=== PATIENT | female | born 1985 | race Hispanic/Latino ===

== ENCOUNTER 2020-03-25 11:43 | Observation (INO) | payer OTHER, SELFPAY ==
[2020-03-25] VITALS (8 sets, daily range): BP systolic 127–156; BP diastolic 76–93; PULSE 63–95; BMI 40.3
--- NOTE | ~2020-03-25 | US_ITS ---
EXAMINATION: US OB limited DATE: 03/25/2020 13:11 INDICATION: Bleeding. Third trimester. TECHNIQUE: Real-time ultrasound of the pelvis was performed. COMPARISON: None. FINDINGS: There is a single fetus in breech presentation. The placenta is anterior. heart rate is 165 be ats per minute (bpm). The amniotic fluid index is 8.9 cm, which is normal. IMPRESSION: 1. Single living fetus in breech presentation. Reviewed, dictated and finalized at location A.
--- NOTE | 2020-03-25 12:25 | WPDANESEPPF ---
Anes - Initial Pre Proc Eval Date/Time: 03/25/20 12:25 Surgeon: Uli Mahmood MD Pre Op Diagnosis: bleeding Patient Data Age: 34 Gender: F Height: Weight: Last Vital Signs Pulse 69 03/25/20 12:16 BP 137/78 03/25/20 12:16 Allergies Allergy/AdvReac Type Severity Reaction Status Date / Time No Known Allergies Allergy Unverified 02/17/17 16:01 Patient hx anesthesia problems: none Family hx anesthesia problems: none [facility] Past Medical History Medical History (Updated 03/25/20 @ 12:25 by Uli Santiago MD) Gestational diabetes mellitus Obesity Surgical History Surgical History (Updated 03/25/20 @ 12:25 by Uli Santiago MD) History of section Anes - Eval Final PreProcedure Day of Procedure 03/25/20 12:25 Patient weight: obese Heart: regular rate and rhythm Lungs: clear to auscultation Airway: Mallampati scale class II Neurological: alert and oriented Last oral intake: >/= 8 hours ASA classification: III Emergent: no Anesthetic plan: proceed Anesthesia type and monitoring: regional spinal and standard monitoring Informed Consent: The patient's anesthetic plan and its attendant risks and benefits were discussed with the patient/family/POA. Questions were solicited and answers provided to the satisfaction of the patient/family/POA.
[2020-03-25 12:40] LABS: Glucose Point of Care 126 (65-105)
[2020-03-25] MEDS: LACTATED RINGERS 1,000 ML 999 ML IV CONT (12:45)
[2020-03-25] MEDS: BETAMETHASONE SOD PHOS/ACETATE 30 MG/5 ML VIAL 12 MG IM (12:46)
[2020-03-25 13:07] LABS: Basophils Percent Auto 0.7 % (0.2-1.2); Eosinophils Absolute Auto 0.1 K/mm3 (0-0.3); Eosinophils Percent Auto 1.2 % (0-4.4); Hematocrit 34.8 % (37.0-47.0); Hemoglobin 11.5 g/dL (12.0-15.0); Immature Granulocyte Absolute 0.06 K/mm3 (0.00-0.031); Lymphocytes Absolute Auto 1.21 K/mm3 (0.9-3.2); Lymphocytes Percent Auto 20.3 % (18.3-44.2); Mean Corpuscular Hemoglobin 26.3 pg (26-34); Mean Corpuscular Volume 79.5 fl (80-100); Mean Platelet Volume 9.7 fl (7.4-10.4); Monocytes Absolute Auto 0.3 K/mm3 (0.1-0.6); Monocytes Percent Auto 5.5 % (2.6-8.5); Neutrophils Absolute Auto 4.3 K/mm3 (1.3-6.7); Neutrophils Percent Auto 71.3 % (45.5-73.1); Platelet Count Result 256 k/mm3 (150-375); Red Blood Count 4.38 M/mm3 (4.2-5.4); Red Cell Distribution Width 14.9 % (11.5-14.5)
--- NOTE | 2020-03-25 13:18 | OBADM ---
This patient, Sara Abdi, admitted to the OB room Labor/Delivery/Recovery 119 for observation. Patient/family oriented to hospital policies and general routines including ID bracelet, bed and alarms, visiting hours, pain management, procedures, bathroom and other care routines, personal items, smoking policy, room service/diet, and visiting hours. Patient/Family are encouraged to report perceived risks to care and to ask questions if they do not understand what they are told or what they should do.
--- NOTE | 2020-04-05 07:05 | PM.OBTRLD ---
OB - Triage/Final Diagnosis Visit Information Date of evaluation: 03/25/20 Reason for evaluation: threatened labor Evaluation Laboratory results: Laboratory Tests 03/25/20 03/25/20 12:34 12:35 WBC 6.0 RBC 4.38 Hgb 11.5 L Hct 34.8 L MCV 79.5 L MCH 26.3 MCHC 33.0 RDW 14.9 H Plt Count 256 MPV 9.7 Immature Gran % (Auto) 1.0 H Neut % (Auto) 71.3 Lymph % (Auto) 20.3 Benzie % (Auto) 5.5 Eos % (Auto) 1.2 Baso % (Auto) 0.7 Lymph # (Auto) 1.21 Benzie # (Auto) 0.3 Eos # (Auto) 0.1 Baso # (Auto) 0.0 Abs Immat Gran (auto) 0.06 H Absolute Neuts (auto) 4.3 Absolute Nucleated RBC 0.0 Nucleated RBC % 0.0 POC Capillary Glucose 126 H
== END 2020-03-25 14:30 | disposition home or self-care (01) ==
PROVIDERS: Obstetrics & Gynecology; Admitting Provider Student in an Organized Health Care Education/Training Program; Visit Provider Student in an Organized Health Care Education/Training Program
DX: O47.9 False labor, unspecified (principal); Z3A.00 Weeks of gestation of pregnancy not specified
CPT/HCPCS: 36415; 76815; 85025; 96372; G0378; G0379; J0702; J7120

== ENCOUNTER 2020-03-26 12:21 | Outpatient (CLI) | payer OTHER, SELFPAY ==
[2020-03-26] MEDS: BETAMETHASONE SOD PHOS/ACETATE 30 MG/5 ML VIAL 12 MG IM (13:01)
--- NOTE | 2020-03-29 11:11 | PM.IMHP ---
H&P: HPI History of Present Illness Chief complaint: outpt inj Narrative: Sara Abdi is a 34 year old female Sandy [place] P3 whose last menstrual period was 07/16/2019, EDC is 04/20/2020, presents at 37 weeks gestation for repeat section and tubal ligation. Her has been complicated by elevated blood pressure with proteinuria. She is having headaches and abdominal pain. PIH labs have been drawn and are normal. Also significantly had an abnormal diabetic screen a week been finding insurance to get treatment for her gestational diabetes. She also desires permanent sterilization and permanent with failure rate of 11/999 reviewed she had all questions answered and asked to proceed Review of Systems Review of Systems: All systems reviewed & are unremarkable except as noted in HPI and below PMFSH Past Medical History Medical History Gestational diabetes mellitus Obesity Surgical History Surgical History History of section Meds Home Medications and Allergies Allergies Allergy/AdvReac Type Severity Reaction Status Date / Time No Known Allergies Allergy Unverified 02/17/17 16:01 Exam Const: General: no acute distress Eyes: General: appearance normal, both eyes and all related structures Neck: Neck: supple and no JVD Thyroid: thyroid normal Resp: Effort & Inspection: normal respiratory effort Auscultation: clear to auscultation bilaterally Cardio: Rate: regular rate Rhythm: regular rhythm GI: Inspection: non-distended GI Palp: Yes Soft to palpation, No Tenderness to palpation present (GI) and No Guarding due to palpation present (GI) Auscultation: normal bowel sounds : General: Yes bladder normal to palpation External Female Exam: normal external appearance Speculum Exam - Vagina: normal vaginal discharge and No vaginal bleeding Speculum Exam - Cervix: nontender Bimanual exam- vagina & uterus: bladder normal to palpation and No Cervical tenderness present OB/external & speculum: No vaginal bleeding Skin: General skin exam: no rashes or lesions noted Extrem: General: normal to inspection and no edema Psych: Mental Status: mental status grossly normal Affect: normal affect Assessment and Plan Additional Plan impression: 37 week with -induced hypertension, gestational diabetes, and desires permanent sterilization Plan: Repeat low-transverse section and bilateral tubal ligation
== END 2020-03-26 13:26 | disposition home or self-care (01) ==
LOC: ANHOBOP 12:32 → ANHOBPP 12:32
PROVIDERS: Visit Provider Obstetrics & Gynecology
DX: Z34.93 Encounter for supervision of normal pregnancy, unspecified, third trimester (principal); Z3A.00 Weeks of gestation of pregnancy not specified
CPT/HCPCS: 96372; 99199; J0702

== ENCOUNTER 2020-03-29 11:13 | Outpatient (CLI) | payer OTHER, SELFPAY ==
--- NOTE | ~2020-03-29 | US_ITS ---
EXAMINATION: US OB BPP wo non-stress DATE: 03/29/2020 13:31 CDT INDICATION: Nonreactive NST TECHNIQUE: Real-time transabdominal obstetric ultrasound. FINDINGS: No prior studies for comparison. There is a single living fetus in transverse presentation. The placenta is anterior without placenta previa. cardiac activity and movement is noted with a heart rate of 159 beats per minute. Biophysical profile: breathin of 2 movement: 2 of 2 tone: 2 of 2 Amniotic flud pocket: 2 of 2 Total score: 8 of 8 IMPRESSION: 1. Single living intrauterine in transverse presentation. 2: Total biophysical profile score of 8/8. Reviewed, dictated and finalized at location B.
[2020-03-29 11:59] VITALS: BP 131/83; PULSE 62
[2020-03-29 12:08] LABS: Basophils Absolute Auto 0.1 K/mm3 (0.0-0.1); Basophils Percent Auto 0.8 % (0.2-1.2); Eosinophils Percent Auto 0.6 % (0-4.4); Hematocrit 33.8 % (37.0-47.0); Immature Granulocyte Absolute 0.27 K/mm3 (0.00-0.031); Immature Granulocyte Percent A 3.8 % (0-0.5); Lymphocytes Absolute Auto 1.81 K/mm3 (0.9-3.2); Lymphocytes Percent Auto 25.3 % (18.3-44.2); Mean Corpuscular HGB Conc 32.5 g/dl (32-36); Mean Corpuscular Hemoglobin 26.2 pg (26-34); Mean Corpuscular Volume 80.5 fl (80-100); Mean Platelet Volume 10.1 fl (7.4-10.4); Monocytes Absolute Auto 0.6 K/mm3 (0.1-0.6); Monocytes Percent Auto 8.5 % (2.6-8.5); Neutrophils Absolute Auto 4.4 K/mm3 (1.3-6.7); Nucleated Red Blood Cells Absolute Auto 0.1 K/mm3 (0.0-0.012); Nucleated Red Blood Cells Perc 0.8 % (0.0-0.2); Platelet Count Result 238 k/mm3 (150-375); Red Cell Distribution Width 14.9 % (11.5-14.5); White Blood Count 7.2 K/mm3 (4.5-10.0)
[2020-03-29 12:20] LABS: Alanine Aminotransferase 78 U/L (4-35); Alkaline Phosphatase 164 U/L (38-126); Aspartate Amino Transferase 52 U/L (14-36); Bilirubin,Total 0.1 mg/dL (0.2-1.3); Blood Urea Nitrogen 18 mg/dL (7-17); Calcium 8.7 mg/dL (8.4-10.2); Carbon Dioxide 19 mmol/L (22-30); Chloride 108 mmol/L (98-107); Estimated Glomerular Filt Rate > 60; Glucose 101 mg/dL (65-105); Sodium 135 mmol/L (137-145)
[2020-03-29 13:46] VITALS: BP 131/83; PULSE 63
[2020-03-29 14:47] VITALS: BP 131/83; PULSE 63; TEMP 37.6
[2020-03-30 06:57] LABS: Rapid Plasma Reagin Non-Reactive (NonReactive)
== END 2020-03-29 13:50 | disposition home or self-care (01) ==
LOC: ANHOBOP 11:18 → ANHOBPP 11:19
PROVIDERS: Visit Provider Obstetrics & Gynecology
DX: O13.9 Gestational [pregnancy-induced] hypertension without significant proteinuria, unspecified trimester (principal); Z3A.00 Weeks of gestation of pregnancy not specified
CPT/HCPCS: 36415; 59025; 76819; 80053; 84550; 85025; 86592; 86850; 86900; 86901; 99199

== ENCOUNTER 2020-03-30 04:59 | Inpatient (IN) | payer OTHER, SELFPAY ==
--- NOTE | 2020-03-29 11:24 | HP_ITS ---
This report was moved to the correct visit, [id number] on 05/10/20. Original report was signed by Dr. Halle Feliciano on 03/29/20 at 1124. H&P: HPI History of Present Illness Chief complaint: outpt inj Narrative: Sara Abdi is a 34 year old female [place] whose last menstrual period was 07/16/2019, EDC is 04/20/2020, presents at 37 weeks gestation for repeat section and tubal ligation. Her has been complicated by elevated blood pressure with proteinuria. She is having headaches and abdominal pain. PIH labs have been drawn and are normal. Also significantly had an abnormal diabetic screen a week been finding insurance to get treatment for her gestational diabetes. She also desires permanent sterilization and permanent with failure rate of 11/999 reviewed she had all questions answered and asked to proceed Review of Systems Review of Systems: All systems reviewed & are unremarkable except as noted in HPI and below PMFSH Past Medical History Medical History Gestational diabetes mellitus Obesity Surgical History Surgical History History of section Meds Home Medications and Allergies Allergies Allergy/AdvReac Type Severity Reaction Status Date / Time No Known Allergies Allergy Unverified 02/17/17 16:01 Exam Const: General: no acute distress Eyes: General: appearance normal, both eyes and all related structures Neck: Neck: supple and no JVD Thyroid: thyroid normal Resp: Effort & Inspection: normal respiratory effort Auscultation: clear to auscultation bilaterally Cardio: Rate: regular rate Rhythm: regular rhythm GI: Inspection: non-distended GI Palp: Yes Soft to palpation, No Tenderness to palpation present (GI) and No Guarding due to palpation present (GI) Auscultation: normal bowel sounds : General: Yes bladder normal to palpation External Female Exam: normal external appearance Speculum Exam - Vagina: normal vaginal discharge and No vaginal bleeding Speculum Exam - Cervix: nontender Bimanual exam- vagina & uterus: bladder normal to palpation and No Cervical tenderness present OB/external & speculum: No vaginal bleeding Skin: General skin exam: no rashes or lesions noted Extrem: General: normal to inspection and no edema Psych: Mental Status: mental status grossly normal Affect: normal affect Assessment and Plan Additional Plan impression: 37 week with -induced hypertension, gestational diabetes, and desires permanent sterilization Plan: Repeat low-transverse section and bilateral tubal ligation Report Initialized date/time: Uli Mcgill MD 03/29/20 / 1124 Electronically signed by: Uli Mcgill MD 03/29/20 1124 [facility]
[2020-03-30] VITALS (47 sets, daily range): BP systolic 113–171; BP diastolic 59–95; PULSE 52–69; RESP 16–18; TEMP 36.5–37.6; O2SAT 86–100; BMI 41.6
--- NOTE | 2020-03-30 04:59 | LDADM ---
This patient, Sara Abdi, was admitted to Labor/Delivery/Recovery 120 on 03/30/20 at 04:59. Plans for labor, pain management and were discussed with patient. Patient/family oriented to hospital policies and general routines including ID bracelet, bed and alarms, visiting hours, pain management, procedures, bathroom and other care routines, personal items, smoking policy, room service/diet and guest tray routines, security routines, and visiting hours. Patient/Family are encouraged to report perceived risks to care and to ask questions if they do not understand what they are told or what they should do. See OBIX for further documentation.
[2020-03-30] MEDS: LACTATED RINGERS 1,000 ML 125 ML IV CONT ×2 (05:43→06:15)
[2020-03-30 05:57] LABS: Glucose Point of Care 84 (65-105)
--- NOTE | 2020-03-30 06:11 | WPDHPUPDATE1 ---
History and Physical Update Update Date/Time: 03/30/20 06:11 History and Physical has been reviewed, including an updated exam of the patient. There are NO changes in the patient's condition. Risks, benefits, and alternatives have been discussed and questions answered. Patient agrees to proceed with procedure.
--- NOTE | 2020-03-30 06:34 | WPDANESEPPF ---
Anes - Initial Pre Proc Eval Procedure: Operation Date: 03/30/20 07:00 Proposed Procedures p Repeat Section With Tubal Ligation With Fallopian Rings - Uli Mahmood MD Date/Time: 03/30/20 06:34 Surgeon: Uli Mahmood MD Pre Op Diagnosis: Section Patient Data Age: 34 Gender: F Height: 1.65 m Weight: 113.5 kg Last Vital Signs Temp 37.2 C 03/30/20 05:19 Pulse 66 03/30/20 05:19 BP 113/95 H 03/30/20 05:19 Allergies Allergy/AdvReac Type Severity Reaction Status Date / Time No Known Allergies Allergy Verified 03/30/20 05:23 Home Medications Medication Instructions Recorded Confirmed Type PNV cmb#95-ferrous fumarate-FA 1 tablet PO DAILY 03/29/20 03/30/20 History [] hydrocodone-acetaminophen [[place]] 1 tablet PO Q4H PRN #30 tablet 03/30/20 Rx Laboratory Tests 03/30/20 05:54 POC Capillary Glucose 84 mg/dl mg/dl (65-105) Patient hx anesthesia problems: none Family hx anesthesia problems: none PMFSH Past Medical History Medical History (Updated 03/30/20 @ 06:35 by Van Aguiar DO) Elevated liver enzymes Gestational diabetes mellitus Obesity PIH ( induced hypertension) Surgical History Surgical History (Updated 03/29/20 @ 16:58 by Van Aguiar DO) History of section x3 Family History Family History (Updated 03/29/20 @ 11:48 by Lady Baron RN) Father Hypertension Mother Hypertension Social History Social History Smoking status: Never smoker Substance use: never Gender identity (if verbalized by the patient): Female Spiritual care concerns: No Anes - Eval Final PreProcedure Day of Procedure 03/30/20 06:34 Patient weight: morbidly obese Heart: regular rate and rhythm Lungs: clear to auscultation and normal air movement Airway: Mallampati scale class III Neurological: alert and oriented Last oral intake: >/= 8 hours ASA classification: III Emergent: no Anesthetic plan: proceed Anesthesia type and monitoring: regional spinal and standard monitoring Informed Consent: The patient's anesthetic plan and its attendant risks and benefits were discussed with the patient/family/POA. Questions were solicited and answers provided to the satisfaction of the patient/family/POA.
[2020-03-30] MEDS: ceFAZolin 2 GM/D5W 50 ML 2 GM/50 ML BAG IVPB (06:51)
--- NOTE | 2020-03-30 07:42 | P.OP_ITS ---
Procedure Note - Detailed Date of procedure: 03/30/20 Pre-op diagnosis: Section Surgeon: Uli Mahmood MD Postop diagnosis: 37 week / previous section - induced hypertension gestational diabetes/ permanent sterilization Procedure: Repeat low-transverse section and bilateral tubal ligation via modified Jean method Q BL: 510cc Anesthesia: Spinal Complications: None Findings: Female 9 lb 2 oz transverse presentation. Apgars of 5 and 9 [id number] 5 minutes respectively Description of procedure: The patient was prepped and draped in the normal sterile fashion and placed in the supine position. Under excellent spinal anesthetic the abdomen was entered in a Pfannenstiel fashion and progressive layers to the fascia. The fascia was opened in an upward outward fashion bilaterally. Underlying muscles were sharply dissected. The parietal perit oneum L by Leanne clamps and entered by sharp dissection. This was carried superiorly. Then inferiorly to the dome of the bladder. Bladder flap was formed bladder blade placed and returned. Low-transverse incision made. The baby was noted to be breech breech was brought to the maternal left. The arms were swept medially and the head delivered in the flexed position. The cord was clamped x2 and cut and the infant passed off the table. Cord blood was drawn. Placenta delivered intact manually. The uterus delivered from the abdomen and wrapped in a moist towel. After assuring no membranes or debris remained in the uterus, the uterus was closed with continuous running locking 0 Vicryl from lateral edge to lateral edge. This was followed by a 2nd imbricating running locking 0 Vicryl from lateral edge to lateral edge. Hemostasis was assured. The right fallopian tube was grasped at its midportion and a good knuckle of tube free tied with 0 chromic. The peritoneum between was pierced and the distal and proximal legs of the knuckle of tube were free tied with 0 chromic. The portion between cut and passed off noted as portion of right fallopian tube. In like fashion the left fallopian tube was grasped at its midportion. A good knuckle of tube free tied with 0 chromic. The peritoneum between again pierced and the distal and proximal legs were free tied with 0 chromic. The portion of tube between was cut and passed off the table marked as portion of left fallopian tube. Hemostasis was assured on each some small fibroids were seen in the ovaries appeared within normal limits. The uterus returned to the abdomen. The laps removed and accounted for and the hysterotomy incision inspected 1 last time noted to be hemostatic. The fascia was closed with continuous running 0 Vicryl from lateral edge to midline bilaterally. Irrigation of the subcutaneous layer and the skin closed with 4 Monocryl and glue. Q BL was 510cc. All sponge, needle, instrument counts were correct. There were no immediate complications
[2020-03-30] MEDS: OXYTOCIN 30 UNITS/NS 500 ML 30 UNITS/500 ML BAG 125 UNITS IV CONT (09:09)
--- NOTE | 2020-03-30 11:00 | PC.NURSE ---
Education: Mom and Baby Guide Given to: Follow-Up: Call your delivering provider's office for an appointment to be seen in: Mom and baby should come to the [facility] for the follow-up appointment. Appointment Date/Time: at What to expect at your follow-up visit: Call [phone] if you are unable to keep your appointment time. Patient transferred to post room #286 via [phone]. Support person present. Oriented to unit, room, information board, rooming in, admission packet and security measures. Patient verbalizes understanding.
[2020-03-30] MEDS: DEXTROSE 5%/0.45% SOD CHL 1,000 ML 125 ML IV CONT (12:18)
[2020-03-30] MEDS: SIMETHICONE 80 MG TAB.CHEW PO (19:15)
[2020-03-30] MEDS: IBUPROFEN 600 MG TABLET PO (22:53)
[2020-03-31 00:10] VITALS: BP 133/73; PULSE 67; RESP 16; TEMP 36.8; O2SAT 100
[2020-03-31 04:40] VITALS: BP 131/68; PULSE 60; RESP 16; TEMP 36.4; O2SAT 100
[2020-03-31] MEDS: IBUPROFEN 600 MG TABLET PO ×4 (04:41→23:14)
[2020-03-31 06:07] LABS: Basophils Absolute Auto 0.1 K/mm3 (0.0-0.1); Basophils Percent Auto 0.4 % (0.2-1.2); Eosinophils Absolute Auto 0.1 K/mm3 (0-0.3); Eosinophils Percent Auto 0.6 % (0-4.4); Hemoglobin 8.9 g/dL (12.0-15.0); Immature Granulocyte Absolute 0.19 K/mm3 (0.00-0.031); Immature Granulocyte Percent A 1.6 % (0-0.5); Lymphocytes Absolute Auto 1.88 K/mm3 (0.9-3.2); Lymphocytes Percent Auto 15.5 % (18.3-44.2); Mean Corpuscular HGB Conc 31.8 g/dl (32-36); Mean Corpuscular Hemoglobin 25.6 pg (26-34); Mean Corpuscular Volume 80.5 fl (80-100); Mean Platelet Volume 10.5 fl (7.4-10.4); Monocytes Absolute Auto 0.9 K/mm3 (0.1-0.6); Monocytes Percent Auto 7.3 % (2.6-8.5); Neutrophils Absolute Auto 9.1 K/mm3 (1.3-6.7); Neutrophils Percent Auto 74.6 % (45.5-73.1); Platelet Count Result 172 k/mm3 (150-375); Red Blood Count 3.48 M/mm3 (4.2-5.4); Red Cell Distribution Width 14.7 % (11.5-14.5); White Blood Count 12.2 K/mm3 (4.5-10.0)
--- NOTE | 2020-03-31 08:00 | PC.NURSE ---
PT introductions made and plan of care discussed per post op c section, pain management, breast feeding, daily care activities. PT verbalized understanding of such care.
--- NOTE | 2020-03-31 10:03 | PM.OBPNVD ---
OB - PN: Subj Subjective Date/time seen: 03/31/20 10:03 Narrative: Pain OK. Tolerating diet. OB - PN: Obj Data Labs CBC & Chem 7: 03/31/20 04:48 Labs: Laboratory Results - last 24 hr 03/31/20 04:48 WBC 12.2 H RBC 3.48 L Hgb 8.9 L Hct 28.0 L MCV 80.5 MCH 25.6 L MCHC 31.8 L RDW 14.7 H Plt Count 172 MPV 10.5 H Immature Gran % (Auto) 1.6 H Neut % (Auto) 74.6 H Lymph % (Auto) 15.5 L [place] % (Auto) 7.3 Eos % (Auto) 0.6 Baso % (Auto) 0.4 Lymph # (Auto) 1.88 [place] # (Auto) 0.9 H Eos # (Auto) 0.1 Baso # (Auto) 0.1 Abs Immat Gran (auto) 0.19 H Absolute Neuts (auto) 9.1 H Absolute Nucleated RBC 0.0 Nucleated RBC % 0.0 OB - PN A/P Plan Comments: A: POD#1, doing well. P: Routine care. Exam Narrative: Exam Narrative: AVSS I/O OK ABD soft, nontender, fundus firm. Incision c/d/i. EXT nontender
[2020-03-31 10:20] VITALS: BP 138/72; PULSE 71; RESP 18; TEMP 37.7; O2SAT 100
[2020-03-31] MEDS: SIMETHICONE 80 MG TAB.CHEW PO ×5 (10:24→23:14)
[2020-03-31] MEDS: MULTIVIT/MIN/PREN/FOL AC/IRON TABLET 1 TAB PO (10:25)
[2020-03-31] MEDS: POLYSACCHARIDE IRON COMPLEX 150 MG CAPSULE PO ×2 (10:26→17:19)
[2020-03-31] MEDS: DOCUSATE SODIUM 100 MG CAPSULE PO ×2 (10:26→17:18)
[2020-03-31] MEDS: LANOLIN (LANSINOH) 7.5 GM CREAM 1 APPLIC TOPICAL (10:30)
--- NOTE | 2020-03-31 11:41 | WPDANLDPN2 ---
Anes-Prog Note L&D Date/Time: 03/31/20 11:41 Comfortable throughout: section Neuraxial method: spinal Epidural/Spinal procedure site: clean & non-tender Neuro status: Neuro function grossly intact. Cardiovascular status: normal Respiratory status: normal Airway patency: baseline Mental status: baseline Vital Signs: Last Vital Signs Temp 36.4 C L 03/31/20 04:40 Pulse 60 03/31/20 04:40 Resp 16 03/31/20 04:40 BP 131/68 03/31/20 04:40 Pulse Ox 100 03/31/20 04:40 I/O: Intake & Output 03/30/20 03/31/20 03/31/20 23:59 07:59 15:59 Intake Total 1600 1400 Output Total 2200 3200 Balance -600 -1800 Post-procedural complaints: none Patient feedback: Patient satisfied with anesthetic care.
--- NOTE | 2020-03-31 11:41 | WPDANLDNPN2 ---
Anes-Prog Note L&D-Neuraxial Date/Time: 03/31/20 11:41 Neuraxial medications: intrathecal PF morphine Opiod-related complaints: none Patient feedback: Patient satisfied with post-operative pain management.
[2020-03-31 12:45] VITALS: BP 119/66; PULSE 69; RESP 18; TEMP 37.4; O2SAT 100
[2020-03-31 20:20] VITALS: BP 133/83; PULSE 78; RESP 16; TEMP 36.1; O2SAT 100
--- NOTE | 2020-04-01 04:45 | P.PNOB_ITS ---
OB - PN: Subj Subjective Date/time seen: 04/01/20 04:45 Narrative: Pain OK. Tolerating diet. Would like to go home. OB - PN: Obj Data Labs CBC & Chem 7: 03/31/20 04:48 Labs: Laboratory Results - last 24 hr 03/31/20 04:48 WBC 12.2 H RBC 3.48 L Hgb 8.9 L Hct 28.0 L MCV 80.5 MCH 25.6 L MCHC 31.8 L RDW 14.7 H Plt Count 172 MPV 10.5 H Immature Gran % (Auto) 1.6 H Neut % (Auto) 74.6 H Lymph % (Auto) 15.5 L [place] % (Auto) 7.3 Eos % (Auto) 0.6 Baso % (Auto) 0.4 Lymph # (Auto) 1.88 [place] # (Auto) 0.9 H Eos # (Auto) 0.1 Baso # (Auto) 0.1 Abs Immat Gran (auto) 0.19 H Absolute Neuts (auto) 9.1 H Absolute Nucleated RBC 0.0 Nucleated RBC % 0.0 OB - PN A/P Plan Comments: A: POD#2, doing well. P: Home to f/u 4 weeks. Exam Narrative: Exam Narrative: AVSS ABD soft, nontender, fundus firm. Incision c/d/i. EXT nontender
--- NOTE | 2020-04-01 04:47 | PM.OBDSVD ---
DS: Admitting Diagnosis Admitting Diagnosis Admitting Diagnosis: IUP at 37 weeks Prior delivery Desired sterility Gestational hypertension DS: Discharge Diagnosis Discharge Diagnosis (1) Gestational hypertension: Code(s): O13.9 - Gestational [-induced] hypertension without significant proteinuria, unspecified trimester Status: Acute (2) Unwanted fertility: Code(s): Z30.09 - Encounter for other general counseling and advice on contraception Status: Acute OB - DS: Summary OB Procedures : None OB Procedures Intrapartum: and Tubal ligation OB Procedures: : None Peripartum Data Procedures: Procedures Operation Date: 03/30/20 07:00 Actual Procedures Side Surgeon p Section Uli Mahmood MD Time Spent with Patient Time attestation: Total time spent providing and/or coordinating discharge services: DS: Data Data Completed and Pending Pending studies at discharge: Pending at discharge 03/30/20 07:26 Surgical [PTH] Routine Labs on day of discharge: Labs from last 24 hours 03/31/20 04:48 WBC 12.2 H RBC 3.48 L Hgb 8.9 L Hct 28.0 L MCV 80.5 MCH 25.6 L MCHC 31.8 L RDW 14.7 H Plt Count 172 MPV 10.5 H Immature Gran % (Auto) 1.6 H Neut % (Auto) 74.6 H Lymph % (Auto) 15.5 L [place] % (Auto) 7.3 Eos % (Auto) 0.6 Baso % (Auto) 0.4 Lymph # (Auto) 1.88 [place] # (Auto) 0.9 H Eos # (Auto) 0.1 Baso # (Auto) 0.1 Abs Immat Gran (auto) 0.19 H Absolute Neuts (auto) 9.1 H Absolute Nucleated RBC 0.0 Nucleated RBC % 0.0 Discharge Plan Discharge Attending physician on discharge: Uli Mahmood Discharging Clinician: Uli Mahmood Patient Disposition: Home, Self-Care Activity: may shower, may drive after 2 weeks and pelvic rest Diet: regular Wound Care Instructions: follow printed instructions Discharge Instructions: Call or return if temperature above 100.4? F, increased abdominal pain, increased vaginal bleeding or any new problems. Stand Alone Forms: General Discharge Information Follow-up/Referrals: Uli Mahmood MD [Physician] - Discharge Medications: New hydrocodone-acetaminophen [[place]] 5-325 mg tablet 1 tablet PO Q4H PRN (Reason: pain) Qty: 30 RF: 0 ferrous sulfate 325 mg (65 mg iron) tablet 325 mg PO DAILY Qty: 30 RF: 0 ibuprofen 600 mg tablet 600 mg PO Q6H PRN (Reason: cramps) Qty: 30 RF: 0 No Action PNV cmb#95-ferrous fumarate-FA [] 28 mg iron- 800 mcg Tablet 1 tablet PO DAILY RF: 0 Date of admission: 03/30/20 04:59 Primary Care Provider: PHYSICIAN,DATA VIRTUALIZATION CONSULTANT Admitting Provider: Uli Mahmood Attending physician on admission: Uli Mahmood
--- NOTE | 2020-04-01 07:37 | PC.NURSE ---
PT introductions made and plan of care discussed per post op c section, pain management, breast/bottle feeding, daily care activities and infant under photo therapy. PT verbalized understanding of such care.
[2020-04-01] MEDS: SIMETHICONE 80 MG TAB.CHEW PO ×3 (07:52→15:27)
[2020-04-01] MEDS: MULTIVIT/MIN/PREN/FOL AC/IRON TABLET 1 TAB PO (07:53)
[2020-04-01] MEDS: POLYSACCHARIDE IRON COMPLEX 150 MG CAPSULE PO ×2 (07:53→15:27)
[2020-04-01] MEDS: DOCUSATE SODIUM 100 MG CAPSULE PO ×2 (07:53→15:27)
[2020-04-01] MEDS: IBUPROFEN 600 MG TABLET PO ×3 (07:53→23:05)
[2020-04-01 07:54] VITALS: BP 141/67; PULSE 78; RESP 18; TEMP 36.8; O2SAT 99
[2020-04-01 19:40] VITALS: BP 138/78; PULSE 67; RESP 16; TEMP 36.7
--- NOTE | 2020-04-02 06:59 | PM.OBPNVD ---
OB - PN: Subj Subjective Date/time seen: 04/02/20 06:59 Patient comments: no complaints and pain well controlled baby status: doing well and nursing well OB - PN: Obj Data Labs CBC & Chem 7: 03/31/20 04:48 OB - PN A/P Plan day: 3 Plan: routine care, discharge home and follow up 6 weeks (4 weeks) Time Spent With Patient Time: Total time spent is greater than 50% in coordination of care (as documented) at patient's floor/unit and/or counseling patient: Time with patient: less than 15 minutes Review of Systems Review of Systems: All systems reviewed & are unremarkable except as noted in HPI and below Exam Const: General: no acute distress Eyes: General: appearance normal, both eyes and all related structures Neck: Neck: supple and no JVD Thyroid: thyroid normal Resp: Effort & Inspection: normal respiratory effort Auscultation: clear to auscultation bilaterally Cardio: Rate: regular rate Rhythm: regular rhythm GI: Inspection: non-distended GI Palp: Yes Soft to palpation, No Tenderness to palpation present (GI) and No Guarding due to palpation present (GI) Auscultation: normal bowel sounds : General: Yes bladder normal to palpation External Female Exam: normal external appearance Speculum Exam - Vagina: normal vaginal discharge and No vaginal bleeding Speculum Exam - Cervix: nontender Bimanual exam- vagina & uterus: bladder normal to palpation and No Cervical tenderness present OB/external & speculum: No vaginal bleeding Skin: General skin exam: no rashes or lesions noted Extrem: General: normal to inspection and no edema Psych: Mental Status: mental status grossly normal Affect: normal affect
[2020-04-02 08:15] VITALS: BP 117/70; PULSE 79; RESP 16; TEMP 36.2; O2SAT 100
[2020-04-02] MEDS: DOCUSATE SODIUM 100 MG CAPSULE PO ×2 (08:18→17:27)
[2020-04-02] MEDS: MULTIVIT/MIN/PREN/FOL AC/IRON TABLET 1 TAB PO (08:18)
[2020-04-02] MEDS: POLYSACCHARIDE IRON COMPLEX 150 MG CAPSULE PO ×2 (08:18→17:26)
[2020-04-02] MEDS: IBUPROFEN 600 MG TABLET PO ×2 (08:19→17:27)
--- NOTE | 2020-04-02 10:00 | PC.NURSE ---
Consult with pt., mother reports she puts to breast will then bottle feed and pump due to jaundice. Mother states she feels her milk is transitioning in today. Mother states first children were more eager to breastfeed, discussed an early 37 week infant. may be sleepy need to be awoken for feedings and not stay awake during the feeding. Mother states she will continue to attempt and bottle feed with pumping. Mother is planning to be discharge if 's jaundice is WNL. Mother is feeding as required and waking infant to feed if needed. is currently meeting outcomes for weight, output and feeding frequencies. Mother states she feels confident to continue current feeding plan at home. Mother will work with . Reviewed transition to breast milk, signs of adequate intake, and engorgement/relief. Instructed to call ICP if intake/output less than required. Reviewed regular medications mother is taking. Information provided per [place]. Reviewed community resources on the [facility] and in the Mom/Baby guide. Information on outpatient services provided. Mother has no further questions at this time.
[2020-04-04 08:58] VITALS: BP 155/87; PULSE 67; RESP 20; TEMP 36.5; O2SAT 98
--- NOTE | 2020-04-23 14:26 | WPDHPUPDATE1 ---
History and Physical Update Update Date/Time: 04/23/20 14:26 History and Physical has been reviewed, including an updated exam of the patient. There are NO changes in the patient's condition. Risks, benefits, and alternatives have been discussed and questions answered. Patient agrees to proceed with procedure. desires permanent sterilization
--- NOTE | 2020-04-23 14:27 | PM.DS ---
DS: Admitting Diagnosis Admitting Diagnosis Admitting Diagnosis: Encounter for supervision of normal , unspecified, third trimester term iup/prev section/desires sterilization DS: Summary Time Spent with Patient Time attestation: Total time spent providing and/or coordinating discharge services: Exam Const: General: no acute distress Eyes: General: appearance normal, both eyes and all related structures Neck: Neck: supple and no JVD Thyroid: thyroid normal Resp: Effort & Inspection: normal respiratory effort Auscultation: clear to auscultation bilaterally Cardio: Rate: regular rate Rhythm: regular rhythm GI: Inspection: non-distended GI Palp: Yes Soft to palpation, No Tenderness to palpation present (GI) and No Guarding due to palpation present (GI) Auscultation: normal bowel sounds : General: Yes bladder normal to palpation External Female Exam: normal external appearance Speculum Exam - Vagina: normal vaginal discharge and No vaginal bleeding Speculum Exam - Cervix: nontender Bimanual exam- vagina & uterus: bladder normal to palpation and No Cervical tenderness present OB/external & speculum: No vaginal bleeding Skin: General skin exam: no rashes or lesions noted Extrem: General: normal to inspection and no edema Psych: Mental Status: mental status grossly normal Affect: normal affect DS: Data Data Completed and Pending Completed studies during hospitalization: Pending at discharge 03/30/20 07:26 Surgical [PTH] Routine Discharge Plan Discharge Attending physician on discharge: Uli Mahmood Consulting providers: Van Aguiar Discharging Clinician: Uli Mahmood Patient Disposition: Home, Self-Care Activity: may shower, may drive after 2 weeks and pelvic rest Diet: regular Wound Care Instructions: follow printed instructions Discharge Instructions: Education: Mom and Baby Guide Given to: Mother Follow-Up: Call your delivering provider's office for an appointment to be seen in: 6 Weeks Mom and baby should come to the [facility] for the follow-up appointment. Appointment Date/Time: April 04, 2020 at 9:00 am What to expect at your follow-up visit: Physical Assessment Call [phone] if you are unable to keep your appointment time. BREAST CARE: 1. Wear a snug supportive bra. 2. For engorgement discomfort: Breast Feeding: A. Apply warm moist washcloths B. Express milk as needed to relieve engorgement C. Wear loose clothing 3. For sore nipples: A. Identify correct latch-on B. Apply warm moist washcloths before and after nursing C. Air dry nipples after nursing D. May apply Lansinoh cream to nipples ABDOMINAL INCISION: (if applicable) 1. Allow incision to air dry 2. Do NOT use lotions for powders on your incision 3. When showering, allow soap and water to run over the incision, but do not wash incision EPISIOTOMY/PERINEAL CARE: 1. Until bleeding stops, use your lu bottle after urinating 2. Change your pad frequently throughout the day 3. No tub baths until seen by your physician - You may shower ACTIVITY: 1. Rest as much as possible. 2. Do not exercise or lift anything heavier than your baby (such as laundry or other children.) 3. Avoid stairs or driving as much as possible. 4. Do not put anything into the vagina. No douching, tampons, or sexual activity until seen by physician. NOTIFY PHYSICIAN IF YOU HAVE ANY QUESTIONS OR IF ANY OF THE FOLLOWING SYMPTOMS OCCUR: 1. If your incision becomes red, swollen, or more painful than what you have experienced in the hospital. 2. If your vaginal bleeding becomes foul smelling. 3. If your vaginal bleeding becomes more heavy than a period or if your bleeding changes from pink to bright red. However, you may pass an occasional walnut-sized clot once or twice for the first week pos
== END 2020-04-02 17:29 | disposition home or self-care (01) | DRG 540 ==
LOC: ANHLDR 05:14 → ANHOB2 03-31 10:12 → ANHLDR 04-04 10:50 → ANHOB2 04-04 10:50
PROVIDERS: Admitting Provider Obstetrics & Gynecology; Visit Provider Obstetrics & Gynecology
PROC: 10D00Z1 Extraction of Products of Conception, Low, Open Approach (ICD-10-PCS; CPT 59514; principal; 2020-03-30 07:00)
DX: O34.211 Maternal care for low transverse scar from previous cesarean delivery (principal); Z37.0 Single live birth; Z3A.37 37 weeks gestation of pregnancy; O13.9 Gestational [pregnancy-induced] hypertension without significant proteinuria, unspecified trimester; O99.214 Obesity complicating childbirth; E66.01 Morbid (severe) obesity due to excess calories; O24.429 Gestational diabetes mellitus in childbirth, unspecified control; O77.0 Labor and delivery complicated by meconium in amniotic fluid; Z30.2 Encounter for sterilization
CPT/HCPCS: 36415; 85025; 88302; A9270; J0690; J1200; J1885; J2274; J2405; J2590; J7120

== ENCOUNTER 2020-04-15 21:31 | Emergency (ER) | payer OTHER, SELFPAY ==
[2020-04-15 21:37] VITALS: BP 144/76; PULSE 84; RESP 18; TEMP 37.3; O2SAT 99
[2020-04-15 21:47] VITALS: BP 123/85; PULSE 79; RESP 18; TEMP 37.3; O2SAT 99
--- NOTE | 2020-04-15 21:49 | ED.GENADULT ---
HPI - General Adult General Chief complaint: Vaginal Bleeding Stated complaint: bleeding Time Seen by Provider: 04/15/20 21:33 Source: RN notes reviewed History of Present Illness HPI narrative: Patient presents emergency department from home for vaginal bleeding. Patient states that she had a performed on 03/30/2020 and is been doing well since that time. She states that this evening at approximately 1600 she began to have lower abdominal cramping and passed a large amount of dark red blood clots and is had some vaginal bleeding since that time. States cramping has resolved. She states she was feeling fine up to this point. Dr. Halle Feliciano is her [employer]. She denies any fevers or chills chest pain shortness of breath Related Data Home Medications Medication Instructions Recorded Confirmed PNV cmb#95-ferrous fumarate-FA 1 tablet PO DAILY 03/29/20 03/30/20 [] labetalol 04/15/20 Allergies Allergy/AdvReac Type Severity Reaction Status Date / Time No Known Allergies Allergy Verified 04/15/20 21:50 Review of Systems Review of Systems: Narrative: Gen.: Denies fevers or chills ENT: Denies congestion Respiratory: Denies shortness of breath or cough CV: Denies chest pain or palpitations GI: Reports abdominal cramping, denies nausea, emesis or diarrhea see HPI Musculoskeletal: Denies back pain or muscle pain Neuro: Denies numbness, tingling, weakness or focal weakness Skin: Denies rash Except as documented, all other systems reviewed and negative PMFSH Past Medical History Medical History Elevated liver enzymes Gestational diabetes mellitus Obesity PIH ( induced hypertension) Surgical History Surgical History (Updated 04/01/20 @ 04:48 by Alexandr Santos MD) History of section x3 Family History Family History (Updated 03/29/20 @ 11:48 by Lady Baron RN) Father Hypertension Mother Hypertension Social History Social History Smoking status: Never smoker Substance use: never Gender identity (if verbalized by the patient): Female Spiritual care concerns: No Exam Narrative: Exam Narrative: APPEARANCE: No acute distress, nontoxic, resting in bed EYES: EOMI HEENT: Normocephalic, atraumatic, OMM RESPIRATORY: No respiratory distress Clear to auscultation bilaterally with no rhonchi wheezing or rales. CARDIOVASCULAR: Regular rate and rhythm without murmurs rubs or gallops. ABDOMINAL: Soft, nontender, nondistended, no rebound or guarding, healing lower abdominal surgical scar with no signs of infection : Normal external exam, moderate amount dark red blood clots in vaginal canal, cervix is closed MUSCULOSKELETAl: Moves all extremities. No clubbing, cyanosis or edema. NEURO: Awake and alert. Following commands, speech normal, no focal deficits SKIN:: Warm, dry. No rashes lesions or abrasions PSYCHIATRIC: Normal affect/mood, Course Course Emergency Course: Discussed with Dr. Bucio for [employer] recommends that patient have an ultrasound performed to rule out products of conception Called and again discussed Dr. Bucio. Discussed current hemoglobin and discussed ultrasound only performed to rule out ectopics at night. This time recommends patient be discharged home with Provera 10 mg once daily for 10 days and will follow as an outpatient Discussed with patient results of workup and diagnosis. Discussed need for follow-up with primary care, proper use of medication, and reasons to return to the emergency department. Patient understands and agrees to current treatment plan Vital Signs Vital signs: Vital Signs Temperature 99.2 F 04/15/20 21:37 Pulse Rate 84 04/15/20 21:37 Respiratory Rate 18 04/15/20 21:37 Blood Pressure 144/76 H 04/15/20 21:37 Pulse Oximetry 99 04/15/20 21:37 Temperature 99.1 F 04/15/20 21:47
[2020-04-15 21:59] LABS: Basophils Absolute Auto 0.1 K/mm3 (0.0-0.1); Basophils Percent Auto 0.4 % (0.2-1.2); Eosinophils Absolute Auto 0.1 K/mm3 (0-0.3); Hematocrit 36.4 % (37.0-47.0); Hemoglobin 11.4 g/dL (12.0-15.0); Immature Granulocyte Absolute 0.07 K/mm3 (0.00-0.031); Immature Granulocyte Percent A 0.6 % (0-0.5); Lymphocytes Absolute Auto 0.97 K/mm3 (0.9-3.2); Lymphocytes Percent Auto 8.6 % (18.3-44.2); Mean Corpuscular HGB Conc 31.3 g/dl (32-36); Mean Corpuscular Hemoglobin 25.2 pg (26-34); Mean Corpuscular Volume 80.5 fl (80-100); Mean Platelet Volume 9.1 fl (7.4-10.4); Monocytes Absolute Auto 0.5 K/mm3 (0.1-0.6); Monocytes Percent Auto 4.1 % (2.6-8.5); Neutrophils Absolute Auto 9.7 K/mm3 (1.3-6.7); Neutrophils Percent Auto 85.3 % (45.5-73.1); Platelet Count Result 438 k/mm3 (150-375); Red Blood Count 4.52 M/mm3 (4.2-5.4); Red Cell Distribution Width 14.4 % (11.5-14.5); White Blood Count 11.3 K/mm3 (4.5-10.0)
[2020-04-15 22:12] LABS: Alanine Aminotransferase 15 U/L (4-35); Alkaline Phosphatase 138 U/L (38-126); Aspartate Amino Transferase 22 U/L (14-36); Bilirubin,Total 0.5 mg/dL (0.2-1.3); Blood Urea Nitrogen 18 mg/dL (7-17); Calcium 9.1 mg/dL (8.4-10.2); Carbon Dioxide 25 mmol/L (22-30); Chloride 103 mmol/L (98-107); Estimated Glomerular Filt Rate > 60; Glucose 143 mg/dL (65-105); Sodium 137 mmol/L (137-145)
[2020-04-15 22:17] VITALS: BP 129/67; PULSE 79; RESP 20; O2SAT 100
[2020-04-15] MEDS: SODIUM CHLORIDE 0.9% IV 1,000 ML 999 ML IV CONT (22:17)
[2020-04-15 23:58] VITALS: BP 131/69; PULSE 75; RESP 20; O2SAT 100
== END 2020-04-16 | disposition home or self-care (01) ==
PROVIDERS: Emergency Provider Emergency Medicine
DX: O72.2 Delayed and secondary postpartum hemorrhage (principal); O24.439 Gestational diabetes mellitus in the puerperium, unspecified control; O13.5 Gestational [pregnancy-induced] hypertension without significant proteinuria, complicating the puerperium
CPT/HCPCS: 36415; 80053; 85025; 96360; 99284; J7030

== ENCOUNTER 2020-09-04 11:15 | Emergency (ER) | payer OTHER, SELFPAY ==
[2020-09-04 11:21] VITALS: BP 168/55; PULSE 74; RESP 20; TEMP 36.3; O2SAT 97
--- NOTE | 2020-09-04 11:42 | ED.SKABFB ---
HPI - Skin/Abscess/Foreign Bdy General Chief complaint: Skin/Abscess/Foreign Body Stated complaint: Boil on leg Time Seen by Provider: 09/04/20 11:42 Source: patient Mode of arrival: ambulatory Limitations: no limitations History of Present Illness HPI narrative: Sara Carrero a 35 yo female with no PMH who comes with a large abscess to left inguinal area that started a week ago. Is gotten progressively worse and last night was swollen and throbbing when she tried to walk. Patient works as a fine dining server at a [employer] and so there is a lot of pressure in that area. States that the pain is now 7 out of 10, when nurse pulled dressing off began to drain, discharge is odiferous, green and bloody Related Data Allergies Allergy/AdvReac Type Severity Reaction Status Date / Time No Known Allergies Allergy Verified 09/04/20 11:30 Review of Systems Review of Systems: Narrative: CONSTITUTIONAL: Denies fever, chills, sweats. EYES: Denies visual changes, redness, discharge. ENT: Denies rhinorrhea, congestion, sore throat, otalgia. CARDIOVASCULAR: Denies chest pain, palpitations, edema. RESPIRATORY: Denies dyspnea, wheezing, cough GASTROINTESTINAL: Denies abdominal pain, nausea, vomiting, diarrhea. GENITOURINARY: Denies dysuria, hematuria, abnormal discharge SKIN: Denies rash or itching. Left inguinal abscess NEUROLOGIC: Denies numbness, or focal weakness. PSYCHIATRIC: Denies anxiety or depression. [facility] Past Medical History Medical History (Updated 09/04/20 @ 12:07 by Abbi Sy CNP) Elevated liver enzymes Gestational diabetes mellitus Obesity PIH ( induced hypertension) Surgical History Surgical History History of section x3 Family History Family History Father Hypertension Mother Hypertension Social History Social History Smoking status: Never smoker Substance use: never Gender identity (if verbalized by the patient): Female Spiritual care concerns: No Comments At time of signature, I agree with nursing past medical, surgical, social and family history. There is no relevant family history pertinent to the presenting complaint. Patient normally does not have high blood pressure but is in a lot of pain Exam Narrative: Exam Narrative: GENERAL: This is a well-nourished, well-developed patient, in mild distress. HEAD: normocephalic, atraumatic. EYES:Sclera clear/white. Vision is grossly intact. EARS: External ears normal, Hearing grossly intact. NOSE: External nose normal without nasal discharge, nares without redness, no rhinorrhea. THROAT: Mucous membranes moist, NECK: Neck supple, CARDIOVASCULAR: Regular rate and rhythm without murmurs, gallops, or rubs. RESPIRATORY: Clear to auscultation. Breath sounds equal bilaterally. No wheezes, rales, or rhonchi. GASTROINTESTINAL: Abdomen soft, non-tender, SKIN: warm, intact with no suspicious lesions or rash, good texture and turgor. Left inguinal abscess with large amount of green and bloody discharge NEURO: awake, alert, and oriented to person, place and time. There were no obvious focal neurologic abnormalities. Steady gait EXTREMITIES: Normal range of motion. BACK: Nontender without deformity Course Course Emergency Course: Left inguinal abscess that started developing a week ago I&D done, culture taken, started on Keflex and Bactrim and Vicodin for pain Follow-up with PCP Vital Signs Vital signs: Vital Signs Temperature 97.3 F L 09/04/20 11:21 Pulse Rate 74 09/04/20 11:21 Respiratory Rate 20 09/04/20 11:21 Blood Pressure 168/55 H 09/04/20 11:21 Pulse Oximetry 97 09/04/20 11:21 Temperature 97.3 F L 09/04/20 11:21 Pulse Rate 74 09/04/20 11:21 Respiratory Rate 20 09/04/20 11:21 Blood Pressure 168/55 H 09/04/20 11:21 Pulse Oximet
== END 2020-09-04 12:12 | disposition home or self-care (01) ==
PROVIDERS: Emergency Provider Nurse Practitioner
DX: L02.214 Cutaneous abscess of groin (principal); E66.9 Obesity, unspecified; Z68.33 Body mass index [BMI] 33.0-33.9, adult
CPT/HCPCS: 10060; 87070; 87205; 99213; G0463